=== PATIENT | female | born 1975 | race African-American/Black ===

== ENCOUNTER 2022-04-19 09:42 | Day surgery (SDC) | payer OTHER ==
[2022-04-17 14:31] LABS: Hemoglobin 10.8 g/dL (12.0-15.5); Mean Corpuscular HGB CONC 30.2 g/dL (32.0-36.0); Mean Corpuscular Volume 89.5 fl (81.6-98.3); Mean Platelet Volume 10.8 fl (7.4-10.4); Platelet Count 284 10x3/uL (150-450); RBC Distribution Width 15.4 % (11.5-14.5); White Blood Cell (WBC) Count 6.4 10x3/uL (3.5-10.5)
[2022-04-17 14:43] LABS: BHCG - Serum Negative (NEGATIVE); Pregs Control Background? CLEAR/WHITE (CLR/WHITE); Pregs Control Bar Appear? YES (CONTROL BAR)
[2022-04-17 14:47] VITALS: BMI 73.2
[2022-04-19] MEDS ORDERED: Midazolam HCl 2 mg/2 ml Vial ONE ×2 (10:52→11:24)
[2022-04-19] MEDS ORDERED: Fentanyl 100 MCG/2 ML VIAL ONE (11:23)
[2022-04-19] MEDS ORDERED: PROPOFOL 20 ML ONE ×2 (11:23→11:57)
[2022-04-19] MEDS ORDERED: Ketorolac Tromethamine 30 MG/ML VIAL ONE ×2 (11:24→12:01)
[2022-04-19] MEDS ORDERED: Glycopyrrolate 0.2 MG/ML 5 ML SYRINGE ONE (11:24)
[2022-04-19] MEDS ORDERED: Succinylcholine 200 MG/10 ml SYRINGE FS ONE (11:24)
[2022-04-19] MEDS ORDERED: CEFAZOLIN 2 GM VIAL ONE (11:35)
[2022-04-19] MEDS ORDERED: HYDROcodone/Acetaminophen 5/325 mg Tablet ONE (13:14)
== END 2022-04-19 14:15 | disposition home or self-care (01) ==
LOC: CSHSDC 09:42
PROVIDERS: ATTEND Obstetrics & Gynecology
PROC: 0UDB8ZZ Extraction of Endometrium, Via Natural or Artificial Opening Endoscopic (ICD-10-PCS; principal; 2022-04-19)
DX: N84.0 Polyp of corpus uteri (principal); N92.0 Excessive and frequent menstruation with regular cycle; E66.01 Morbid (severe) obesity due to excess calories; I10 Essential (primary) hypertension; J45.909 Unspecified asthma, uncomplicated; Z79.899 Other long term (current) drug therapy; Z88.5 Allergy status to narcotic agent; Z88.8 Allergy status to other drugs, medicaments and biological substances; Z91.040 Latex allergy status; Z68.45 Body mass index [BMI] 70 or greater, adult
CPT/HCPCS: 84703; 85027; 86850; 86900; 86901; 88305; J1885; J2250; J2704; J3010

== ENCOUNTER 2023-07-18 20:16 | Emergency (ER) | payer OTHER ==
[2023-07-18] MEDS ORDERED: Ketorolac Tromethamine 30 MG (1 mL) VIAL ONE (21:52)
[2023-07-18] MEDS ORDERED: Dexamethasone 10 MG/ML VIAL ONE (22:35)
== END 2023-07-18 22:48 | disposition home or self-care (01) ==
LOC: CSHERS 20:16
DX: B34.9 Viral infection, unspecified (principal); I10 Essential (primary) hypertension; J45.909 Unspecified asthma, uncomplicated; Z86.718 Personal history of other venous thrombosis and embolism
CPT/HCPCS: 70450; 87081; 87430; 96372; 96374; 96375; 99284; J1100; J1200; J1885; J2765